=== PATIENT | female | born 1935 | race Caucasian/White ===

== ENCOUNTER → 2016-07-28 | Outpatient (CLI) | payer MEDICARE, OTHER ==
[~2016-07-28] MED LIST: ASTELIN NASAL S34 ML NS; BENICAR40 MG PO; BRIMONIDINE TART5 ML OP; CENTRUM SILVER1 TA1 PO; FOLIC ACID1 MG PO; LEVOTHYROXINE0.1 MG PO; LIPITOR 10MG10 MG PO; METFORMIN500 MG PO; METHOTREXATE2.5 M1 PO; TUMS EX750 MG PO; TYLENOL ELIX32 MG/ML PO; VENTOLIN0.09 MG IH; VITAMIN C BUFF500 MG PO; XALATAN EYE DROPS OD
== END ==
LOC: MC.RAD 07-27 09:40
DX: Z12.31 Encounter for screening mammogram for malignant neoplasm of breast (principal)

== ENCOUNTER → 2017-08-30 | Outpatient (CLI) | payer MEDICARE, OTHER | LOC: MC.RAD 13:45 | DX: Z12.31 Encounter for screening mammogram for malignant neoplasm of breast (principal); C50.411 Malignant neoplasm of upper-outer quadrant of right female breast ==

== ENCOUNTER → 2018-09-01 | Outpatient (CLI) | payer MEDICARE, OTHER | LOC: MC.RAD 12:41 | DX: Z12.31 Encounter for screening mammogram for malignant neoplasm of breast (principal); C50.411 Malignant neoplasm of upper-outer quadrant of right female breast; Z98.890 Other specified postprocedural states; Z92.3 Personal history of irradiation ==

== ENCOUNTER 2019-02-20 08:21 | Day surgery (SDC) | payer MEDICARE, OTHER ==
[~2019-02-20] VITALS: Ht 170.5 cm; Wt 93.3 kg
[2019-02-20 09:02] LABS: HEMATOCRIT 44.1 % (37.0-47.0); HEMOGLOBIN 13.9 g/dl (12.5-16.0); MEAN CELL VOLUME 93 fl (80.0-100.0); MEAN CORPUSCULAR HEMOGLOBIN 29 pg (27.0-31.0); MEAN CORPUSCULAR HGB CONC 32 g/dl (33.0-37.0); MEAN PLATELET VOLUME 10.6 fl (7.4-10.4); PLATELET COUNT 191 K/mm3 (130-400); RED BLOOD COUNT 4.77 M/mm3 (4.10-5.30)
[2019-02-20 09:04] LABS: INR 1.4 (0.8-3.0); PROTHROMBIN TIME 16.3 SECONDS (9.7-12.8)
[2019-02-20] MEDS ORDERED: METHOTREXA2.5 MG/TAB PO ×2 (09:13→09:14)
[2019-02-20] MEDS ORDERED: AMARYL 2MG T2 MG/TAB PO (09:15)
[2019-02-20] MEDS ORDERED: FOLIC ACID 11 MG/TA1 PO (09:15)
[2019-02-20] MEDS ORDERED: JANUVIA 100MG100 MG PO (09:16)
[2019-02-20 09:17] LABS: CALCIUM 9.4 mg/dL (8.4-10.2); CREATININE, serum 0.7 (0.52-1.25); POTASSIUM 4.2 mmol/L (3.4-5.0)
[2019-02-20] MEDS ORDERED: MICARDIS80 MG PO (09:17)
[2019-02-20] MEDS ORDERED: SYNTHROID0.1 MG/TAB PO (09:17)
[2019-02-20] MEDS ORDERED: LIPITOR 10MG10 MG PO (09:18)
[2019-02-20] MEDS ORDERED: CARDIZEM CD 24240 MG PO (09:19)
[2019-02-20] MEDS ORDERED: RESTASIS MULTI5.5 ML OU (09:20)
[2019-02-20] MEDS ORDERED: ELIQUIS 5MG PO (09:20)
[2019-02-20] MEDS ORDERED: PROAIR HFA0.09 MG/AC IH (09:21)
[2019-02-20] MEDS ORDERED: FLONASE SENSIM9.9 ML NS (09:23)
[2019-02-20] MEDS ORDERED: AYR BABY SALINE30 ML NS (09:24)
[2019-02-20] MEDS ORDERED: OYSCO 500 + D 51 TAB PO (09:25)
[2019-02-20 09:26] VITALS: BP 147/88; PULSE 130; TEMP 97.6
[2019-02-20] MEDS ORDERED: MULTI VITAMINS1 TAB PO (09:26)
[2019-02-20] MEDS ORDERED: TAMBOCOR 1100 MG/TAB PO (09:59)
[2019-02-20 10:20] VITALS: BP 126/86; PULSE 90
--- NOTE | 2019-02-20 10:20 | NUR ---
REPORT FROM REKHA RN, PT IS SITTING UP IN BED AWAKE, TALKING TO DAUGHTER, POST EKG DONE.
[2019-02-20 10:35] VITALS: BP 126/68; PULSE 99
--- NOTE | 2019-02-20 10:35 | NUR ---
DR CARR INTO SEE PT AND DAUGHTER, NEW MED ORDERED, PT SIPS ON WATER
[2019-02-20 10:50] VITALS: BP 129/78; PULSE 98
[2019-02-20 11:10] VITALS: BP 128/76; PULSE 92
--- NOTE | 2019-02-20 11:15 | NUR ---
PT UP TO B/R, GAIT STEADY, REVIEWED DISCHARGE INST. WITH PT AND MARICRUZ, HAS APPT WITH EKG, WILL RN ADVICE NEW RX, INFORMATION GIVEN AND REVIEWED ACITIVITY TODAY AND PRECAUTIONS WITH VERBAL UNDERSTANDING. IV D'CD INTACT. PT DRESSED, DISCHARGED AMB. PER PT REQUEST DUE TO UNABLE TO GO ON ELEVATOR, GAIT STEADY, NO DIZZINESS TO CAR WITH DAUGHTER AT 1125
== END 2019-02-20 11:25 | disposition home or self-care (01) ==
LOC: COL.CAR 08:21
PROVIDERS: Internal Medicine Cardiovascular Disease
DX: I48.91 Unspecified atrial fibrillation (principal); I48.92 Unspecified atrial flutter; E11.9 Type 2 diabetes mellitus without complications; I10 Essential (primary) hypertension; E03.9 Hypothyroidism, unspecified; M06.9 Rheumatoid arthritis, unspecified; E78.2 Mixed hyperlipidemia; J45.909 Unspecified asthma, uncomplicated; Z88.0 Allergy status to penicillin; Z88.5 Allergy status to narcotic agent; Z79.51 Long term (current) use of inhaled steroids; Z79.84 Long term (current) use of oral hypoglycemic drugs; Z90.710 Acquired absence of both cervix and uterus; Z79.01 Long term (current) use of anticoagulants; Z85.3 Personal history of malignant neoplasm of breast; Z82.49 Family history of ischemic heart disease and other diseases of the circulatory system; Z82.61 Family history of arthritis
CPT/HCPCS: J2704; J7030

== ENCOUNTER 2019-03-02 07:47 | Day surgery (SDC) | payer MEDICARE, OTHER ==
[~2019-03-02] VITALS: Ht 170.6 cm; Wt 92.0 kg
[~2019-03-02 07:47] MED LIST changes: +AMARYL 2MG T2 MG/TAB PO; +AYR BABY SALINE30 ML NS; +CARDIZEM CD 24240 MG PO; +ELIQUIS 5MG PO; +FLONASE SENSIM9.9 ML NS; +FOLIC ACID 11 MG/TA1 PO; +JANUVIA 100MG100 MG PO; +METHOTREXA2.5 MG/TAB PO; +MICARDIS80 MG PO; +MULTI VITAMINS1 TAB PO; +OYSCO 500 + D 51 TAB PO; +PROAIR HFA0.09 MG/AC IH; +RESTASIS MULTI5.5 ML OU; +SYNTHROID0.1 MG/TAB PO; +TAMBOCOR 1100 MG/TAB PO
[2019-03-02 08:14] LABS: HEMATOCRIT 46.9 % (37.0-47.0); HEMOGLOBIN 14.8 g/dl (12.5-16.0); MEAN CELL VOLUME 92 fl (80.0-100.0); MEAN CORPUSCULAR HEMOGLOBIN 29 pg (27.0-31.0); MEAN CORPUSCULAR HGB CONC 32 g/dl (33.0-37.0); MEAN PLATELET VOLUME 10.5 fl (7.4-10.4); PLATELET COUNT 223 K/mm3 (130-400); REDCELL DISTRIBUTION WIDTH-CV 15.9 % (11.5-14.5)
[2019-03-02 08:20] LABS: INR 1.5 (0.8-3.0); PROTHROMBIN TIME 17.2 SECONDS (9.7-12.8)
[2019-03-02 08:24] LABS: CALCIUM 10.1 mg/dL (8.4-10.2); CREATININE, serum 0.73 (0.52-1.25); POTASSIUM 4.4 mmol/L (3.4-5.0)
[2019-03-02 08:40] VITALS: BP 153/55; PULSE 80; TEMP 98.3
[2019-03-02] MEDS ORDERED: CARDIZEM CD 18180 MG PO ×2 (08:45→09:26)
[2019-03-02] MEDS ORDERED: SYSTANE 0.4%-0.1 SOL OP (08:52)
[2019-03-02] MEDS ORDERED: BETAPACE 120MG120 MG PO (09:27)
--- NOTE | 2019-03-02 09:30 | NUR ---
Dr. Roberson in room with pt. CV cancelled, pt is in SR per Dr. Roberson. PIV removed with catheter intact.
--- NOTE | 2019-03-02 10:04 | NUR ---
Pt discharged per ambulation with daughter.
== END 2019-03-02 10:06 | disposition home or self-care (01) ==
LOC: COL.CAR 07:47
PROVIDERS: Internal Medicine Cardiovascular Disease
DX: I48.92 Unspecified atrial flutter (principal); E78.5 Hyperlipidemia, unspecified; I10 Essential (primary) hypertension; E03.9 Hypothyroidism, unspecified; M06.9 Rheumatoid arthritis, unspecified; J45.909 Unspecified asthma, uncomplicated; E11.42 Type 2 diabetes mellitus with diabetic polyneuropathy; Z79.02 Long term (current) use of antithrombotics/antiplatelets; Z85.3 Personal history of malignant neoplasm of breast; Z88.0 Allergy status to penicillin; Z82.49 Family history of ischemic heart disease and other diseases of the circulatory system; Z82.61 Family history of arthritis; Z90.710 Acquired absence of both cervix and uterus; Z88.5 Allergy status to narcotic agent

== ENCOUNTER → 2019-03-28 | Outpatient (CLI) | payer MEDICARE, OTHER ==
[~2019-03-28] MED LIST changes: +BETAPACE 120MG120 MG PO; +CARDIZEM CD 18180 MG PO; +SYSTANE 0.4%-0.1 SOL OP
== END ==
LOC: COL.RAD 03-22 08:00
DX: Z01.812 Encounter for preprocedural laboratory examination (principal); N28.1 Cyst of kidney, acquired; K57.30 Diverticulosis of large intestine without perforation or abscess without bleeding; M16.0 Bilateral primary osteoarthritis of hip; M51.36 Other intervertebral disc degeneration, lumbar region
CPT/HCPCS: Q9967

== ENCOUNTER → 2019-07-25 | Outpatient (CLI) | payer MEDICARE, OTHER | LOC: COL.RAD 10:47 | DX: Z01.812 Encounter for preprocedural laboratory examination (principal); S10.93XA Contusion of unspecified part of neck, initial encounter; I65.29 Occlusion and stenosis of unspecified carotid artery | CPT/HCPCS: Q9967 ==

== ENCOUNTER → 2019-09-04 | Outpatient (CLI) | payer MEDICARE, OTHER | LOC: MC.RAD 10:17 | DX: Z12.31 Encounter for screening mammogram for malignant neoplasm of breast (principal); Z98.890 Other specified postprocedural states; Z92.3 Personal history of irradiation; Z85.3 Personal history of malignant neoplasm of breast ==

== ENCOUNTER → 2020-10-28 | Outpatient (CLI) | payer MEDICARE, OTHER | LOC: MC.RAD 09-04 10:00 | DX: Z12.31 Encounter for screening mammogram for malignant neoplasm of breast (principal); C50.411 Malignant neoplasm of upper-outer quadrant of right female breast ==

== ENCOUNTER → 2021-10-28 | Outpatient (CLI) | payer MEDICARE, OTHER | LOC: MC.RAD 11:09 | DX: Z12.31 Encounter for screening mammogram for malignant neoplasm of breast (principal); Z85.3 Personal history of malignant neoplasm of breast ==